=== PATIENT | male | born 1965 | race Caucasian/White ===

== ENCOUNTER 2016-09-20 10:53 | Outpatient (CLI) | payer OTHER ==
[2016-04-26 18:16] VITALS: BMI 29.7
[2016-09-20 13:17] LABS: BASOPHILS # (AUTO) 0.1 K/uL (0-0.2); BASOPHILS % (AUTO) 0.9 % (0.0-3.0); EOSINOPHILS # (AUTO) 0.5 K/ul (0.0-0.7); EOSINOPHILS % (AUTO) 7.8 % (0.0-7.0); HEMATOCRIT 46.1 % (42.0-52.0); HEMOGLOBIN 15.3 g/dl (14.0-18.0); IMMATURE GRANULOCYTE % (AUTO) 0.4 % (0.0-5.0); LYMPHOCYTES # (AUTO) 1.7 K/uL (0.60-3.4); MEAN CORPUSCULAR HEMOGLOBIN 30.1 pg (27.0-31.0); MEAN CORPUSCULAR HGB CONC 33.2 (31.8-35.4); MEAN CORPUSCULAR VOLUME 90.7 fl (80.0-94.0); MONOCYTES # (AUTO) 0.7 K/uL (0.4-2.0); MONOCYTES % (AUTO) 9.6 (0-10); NEUTROPHILS # (AUTO) 3.8 K/ul (2.0-6.9); NEUTROPHILS % (AUTO) 56.3; PLATELET COUNT 308 10^3/uL (140-440); RED BLOOD COUNT 5.08 10^6/ul (4.70-6.10)
[2016-09-20 13:35] LABS: ALBUMIN 3.9 g/dL (3.4-5.0); ALBUMIN/GLOBULIN RATIO 0.98; ANION GAP 12.6; BILIRUBIN,TOTAL 0.72 mg/dL (0.00-1.20); BUN/CREATININE RATIO 17.14; CALCIUM 9.3 mg/dL (8.2-10.2); CHOL/HDL RATIO 4.9 (4.5-6.4); CREATININE 1.05 mg/dL (0.60-1.10); PHOSPHORUS 2.7 mg/dL (2.5-4.9); POTASSIUM 4.6 mmol/L (3.5-5.1); TOTAL PROTEIN 7.9 g/dL (6.4-8.2)
[2016-09-20 13:36] LABS: BILIRUBIN,URINE Negative (NEGATIVE); KETONES,URINE Negative (NEGATIVE); LEUKOCYTE ESTERASE ,URINE Negative (NEGATIVE); NITRITE,URINE Negative (NEGATIVE); PROTEIN,URINE Negative (NEGATIVE); URINE, BLOOD Negative (NEGATIVE)
[2016-09-20 13:39] LABS: ADD URINE MICROSCOPIC NO
== END 2016-09-20 10:54 | disposition home or self-care (01) ==
LOC: LAB 10:53
PROVIDERS: ATTEND General Practice
DX: M54.5 Low back pain (principal); R73.09 Other abnormal glucose; M25.551 Pain in right hip; Z79.899 Other long term (current) drug therapy
CPT/HCPCS: 36415; 80053; 80061; 81001; 83036; 84100; 85025

== ENCOUNTER 2016-11-18 12:45 | Outpatient (CLI) ==
[2016-04-26 18:16] VITALS: BMI 29.7
== END 2016-11-18 12:46 | disposition home or self-care (01) ==
LOC: LAB 12:45
PROVIDERS: ATTEND General Practice
DX: M79.671 Pain in right foot (principal); M10.9 Gout, unspecified
CPT/HCPCS: 36415; 84550

== ENCOUNTER 2017-05-02 07:36 | Emergency (ER) ==
[2017-05-02 07:40] VITALS: BP 122/88; TEMP 97.4; BMI 30.3
[2017-05-02] MEDS ORDERED: MORPHINE 10 MG/ML SYRINGE IM STA (07:45)
[2017-05-02] MEDS ORDERED: NORCO 10-325 PO STA (07:45)
[2017-05-02] MEDS ORDERED: ZOFRAN 4 MG/2 ML IM STA (07:45)
[2017-05-02] MEDS ORDERED: TORADOL IM STA (07:46)
--- NOTE | 2017-05-02 07:50 | ED.PDOC ---
General ED Provider: Dr. SARI MICHAEL Chief Complaint: Foot Pain/Injury Stated Complaint: RIGHT FOOT PAIN Time Seen by Physician: 07:40 (GOUT HX WITH SAME PAIN) Mode of Arrival: Wheelchair Information Source: Patient, Family Exam Limitations: No limitations [facility] Nursing and Triage Documentation Reviewed and Agree: Yes Musculoskeletal Complaint Exam - Ankle/Foot Complaint/Exam Location of Injury: Reports: Right, Ankle, Foot Mechanism of Injury: Reports: No known trauma Onset/Duration: CHRONIC WORSE TODAY Symptoms Are: Reports: Still present Onset of Pain: Reports: Days Initial Severity: Moderate Current Severity: Moderate Location: Reports: Discrete Character: Reports: Aching Alleviating: Reports: Rest, Position Aggravating: Reports: Movement, Weight bearing, Prolonged standing Able to Bear Weight: Yes Associated Signs and Symptoms: Reports: Swelling (BIG TOE ). Denies: Redness, Bruising, Fever, Weakness, Numbness, Tingling Related History: Reports: Similar episode Gout Risk Factors: Reports: >40 years old, Male, HTN Related Surgical History: Reports: None Lower Extremity Findings: Present: Swelling (BIG TOE ALSO TENDER ) Tenderness: Present: Digits (BIG TOE) Differential Diagnosis: Gout Review of Systems - Review Of Systems Constitutional: Reports: No symptoms Eyes: Reports: No symptoms Ears, Nose, Mouth, Throat: Reports: No symptoms Respiratory: Reports: No symptoms Cardiac: Reports: No symptoms GI: Reports: No symptoms : Reports: No symptoms Musculoskeletal: Reports: Joint pain (BIG TOE) Skin: Reports: No symptoms Neurological: Reports: No symptoms Endocrine: Reports: No symptoms Hematologic/Lymphatic: Reports: No symptoms All Other Systems: Reviewed and Negative Past Medical History - Past Medical History Previously Healthy: Yes Endocrine: Reports: None Cardiovascular: Reports: None Respiratory: Reports: None Hematological: Reports: None Gastrointestinal: Reports: None Genitourinary: Reports: None Neuro/Psych: Reports: None Musculoskeletal: Reports: Arthritis Cancer: Reports: None - Surgical History General Surgical History: Reports: Orthopedic (BACK X 6, HIP REPLACEMENT), Back Surgery - Family History Family History: Reports: Unknown - Social History Smoking Status: Former smoker Hx Substance Use: No Alcohol Screening: Occasionally Physical Exam - Physical Exam Appearance: Well-appearing, No pain distress, Well-nourished Eyes: DREW, EOMI, Conjunctiva clear ENT: Ears normal, Nose normal, Oropharynx normal Respiratory: Airway patent, Breath sounds clear, Breath sounds equal, Respirations nonlabored Cardiovascular: RRR, Pulses normal, No rub, No murmur GI/: Soft, Nontender, No masses, Bowel sounds normal, No Organomegaly Musculoskeletal: Limited ROM (RIGHT BIG TOE) Skin: Warm, Dry, Normal color Neurological: Sensation intact, Motor intact, Reflexes intact, Cranial nerves intact, Alert, Oriented Psychiatric: Affect appropriate, Mood appropriate Critical Care Note - Critical Care Note Total Time (mins): 0 Course - Course Orders, Labs, Meds: Orders Category Date Time Status Ketorolac Tromethamine [Toradol] MEDS 05/02/17 07:46 Stat 60 mg IM ONCE STA Morphine Sulfate [Morphine 10 mg/ml Syringe] MEDS 05/02/17 07:45 Stat 4 mg IM ONCE STA Ondansetron HCl/Pf [Zofran 4 mg/2 ml] MEDS 05/02/17 07:45 Stat 4 mg IM ONCE STA Medications Discontinued Medications Generic Name Dose Route Start Last Admin Trade Name Michael PRN Reason Stop Dose Admin Ketorolac Tromethamine 60 mg 05/02/17 07:46 Toradol IM 05/02/17 07:47 ONCE STA Morphine Sulfate 4 mg 05/02/17 07:45 Morphine 10 Mg/Ml Syringe IM 05/02/17 07:46 ONCE STA Ondansetron HCl 4 mg 05/02/17 07:45 Zofran 4 Mg/2 Ml IM 05/02/17 07:46 ONCE STA Vital Signs: Temp Pulse Resp BP Pulse Ox 05/02/17 07:38 97.4 F L 94 H 20 122/88 94 L Departure - Departure Time of Disposition: 07:50 Disposition: HOME SELF-CARE Discharge Problem: Gout attack Qualifiers: Gout site: foot Gout etiology: unspecified cause Laterality: right Qualified Code(s): M10.9 - Gout, unspecified Instructions: Low Purine Diet (ED), Gout (ED) Condition: Good Pt referred to PMD for follow-up: Yes Additional Instructions: Please call your Family Physician as soon as possible to schedule a follow-up appointment. Prescriptions: Hydrocodone/Acetaminophen [Sharps 10-325 Tablet] 1 each PO Q8HR #14 tablet Indomethacin [Indocin] 50 mg PO TIDWM 4 Days #12 capsule Allergies/Adverse Reactions: Allergies No Known Drug Allergies Allergy (Verified 12/11/17 07:40) Home Medications: Ambulatory Orders Hydrocodone/Acetaminophen [Sharps 10-325 Tablet] 1 each PO Q8HR #14 tablet Indomethacin [Indocin] 50 mg PO TIDWM 4 Days #12 capsule 05/02/17
== END 2017-05-02 08:27 | disposition home or self-care (01) ==
LOC: ED 07:36
DX: M10.9 Gout, unspecified (principal)
CPT/HCPCS: 96372; 99283

== ENCOUNTER 2017-05-26 12:20 | Outpatient (CLI) ==
--- NOTE | 2017-05-26 12:55 | DI ---
EXAM: Three views of the right foot HISTORY: Pain in the right foot. COMPARISON: Right foot x-ray 12/03/2014 FINDINGS: There is degenerative change of the IP joint of the great toe on the first MTP joint with m inimal hallux valgus changes. There is a linear lucency seen to the ossicle near the first MTP joint seen best on lateral view. There is no visualized erosion. The arch is maintained. The soft tissue s are unremarkable. There is scattered degenerative change in the midfoot. IMPRESSION: 1. There is a linear lucency through the ossicle at the first MTP joint. This is new in comparison t o prior study. 2. There is scattered degenerative change throughout the right foot.
== END 2017-05-26 12:21 | disposition home or self-care (01) ==
LOC: RAD 12:20
PROVIDERS: ATTEND General Practice
DX: M79.671 Pain in right foot (principal)

== ENCOUNTER 2017-06-13 08:39 | Emergency (ER) ==
[2017-06-13 08:40] VITALS: BMI 30.3
[2017-06-13 08:43] VITALS: BP 114/70; TEMP 100.7
--- NOTE | 2017-06-13 10:02 | DI ---
EXAM: CHEST FRONTAL AND LATERAL VIEWS HISTORY: Cough. COMPARISON: 07/08/2013 FINDINGS: Heart size and mediastinal contour remain within normal limits. No acute infiltrates. Normal vascularity with no pleural fluid or pneumothorax. The bony thorax has no acute finding. IMPRESSION: No acute process.
--- NOTE | 2017-06-13 10:21 | ED.PDOC ---
General ED Provider: Dr. SARI MICHAEL Chief Complaint: Respiratory Complaint Stated Complaint: cough, flu like symptoms Time Seen by Physician: 09:00 Mode of Arrival: Walk-In Information Source: Patient Exam Limitations: No limitations [facility] and T[facility] Documentation Reviewed and Agree: Yes Reviewed sepsis parameters & appropriate labs ordered?: Yes System Inflammatory Response Syndrome: Not Applicable Sepsis Protocol: For patient's 13 years and over: Temp is 96.8 and below OR 101 and greater Pulse >90 BPM Resp >20/minute Acutely Altered Mental Status Are patient's symptoms suggestive of a new infection, such as: -Pneumonia -Skin, Soft Tissue -Endocarditis -UTI -Bone, Joint Infection -Implantable Device -Acute Abdominal Infection -Wound Infection -Meningitis -Blood Stream Catheter Infection -Unknown System Inflammatory Response Syndrome: Not Applicable Respiratory Complaint Exam - Respiratory Complaint/Exam Onset/Duration: 1 week Timing: Constant, Intermittent Initial Severity: Moderate Current Severity: Moderate Location: Throat, Chest Character: Reports: Non-productive cough Aggravating: Reports: None Alleviating: Reports: None Associated Signs and Symptoms: Reports: Fever, Chills, URI, Nasal congestion Related History: Reports: Similar episode History of Healthcare-Acquired Pneumonia: No Related Surgical History: Reports: None Pulmonary Embolism Risk Factors: None Cardiac Risk Factors: Reports: None Pseudomonas Risk Factors: Reports: None Tuberculosis Risk Factors: Reports: None Status Asthmaticus Risk Factors: Reports: None Home Oxygen Use: No Recent Stress Test: No Recent Echo/LV Function: No Current Antibiotic Use: No Current Asthma Medication Use: No Respiratory Distress: None Inadequate Respiratory Effort: No Dysphagia Present: No Stridor Present: No JVD Present: No Accessory Muscle Use: No Retractions: Not Present Grunting Respirations: No Kussmaul Respirations: No Differential Diagnoses: Pneumonia, Bronchitis, Influenza Review of Systems - Review Of Systems Constitutional: Reports: Chills, Fever, Malaise, Weakness Eyes: Reports: No symptoms Ears, Nose, Mouth, Throat: Reports: No symptoms Respiratory: Reports: Cough Cardiac: Reports: No symptoms GI: Reports: No symptoms : Reports: No symptoms Musculoskeletal: Reports: No symptoms Skin: Reports: No symptoms Neurological: Reports: No symptoms Endocrine: Reports: No symptoms Hematologic/Lymphatic: Reports: No symptoms All Other Systems: Reviewed and Negative Past Medical History - Past Medical History Previously Healthy: Yes Endocrine: Reports: None Cardiovascular: Reports: None Respiratory: Reports: None Hematological: Reports: None Gastrointestinal: Reports: None Genitourinary: Reports: None Neuro/Psych: Reports: None Musculoskeletal: Reports: Arthritis Cancer: Reports: None - Surgical History General Surgical History: Reports: Orthopedic (BACK X 6, HIP REPLACEMENT), Back Surgery - Family History Family History: Reports: Unknown - Social History Smoking Status: Former smoker Hx Substance Use: No Alcohol Screening: Occasionally Physical Exam - Physical Exam Appearance: Well-appearing, No pain distress, Well-nourished Eyes: DREW, EOMI, Conjunctiva clear ENT: Ears normal, Nose normal, Oropharynx normal Respiratory: Rhonchi Cardiovascular: RRR, Pulses normal, No rub, No murmur GI/: Soft, Nontender, No masses, Bowel sounds normal, No Organomegaly Musculoskeletal: Normal strength, ROM intact, No edema, No calf tenderness Skin: Warm, Dry, Normal color Neurological: Sensation intact, Motor intact, Reflexes intact, Cranial nerves intact, Alert, Oriented Psychiatric: Affect appropriate, Mood appropriate Interpretation - Radiology Interpretation Radiology Interpretation By: Radiologist Radiology Results: No acute changes Critical Care Note - Critical Care Note Total Time (mins): 0 Course - Course Hematology/Chemistry: 06/13/17 09:35 06/13/17 09:35 Orders, Labs, Meds: Lab Review 06/13/17 06/13/17 06/13/17 09:35 09:35 09:35 WBC 5.92 RBC 4.58 L Hgb 14.3 Hct 41.4 L MCV 90.4 MCH 31.2 H MCHC 34.5 RDW Coeff of Erika 14.2 Plt Count 278 Immature Gran % (Auto) 0.2 Neut % (Auto) 65.0 Lymph % (Auto) 18.8 Rapides % (Auto) 12.0 H Eos % (Auto) 3.5 Baso % (Auto) 0.5 Immature Gran # (Auto) 0.0 Neut # 3.9 Lymph # 1.1 Rapides # 0.7 Eos # 0.2 Baso # 0.0 Sodium 138 Potassium 4.2 Chloride 109 H Carbon Dioxide 24 Anion Gap 9.2 BUN 13 Creatinine 1.09 Estimated GFR (MDRD) 71.00 BUN/Creatinine Ratio 11.92 Glucose 128 H Calcium 8.5 Total Bilirubin 0.4 AST 23 ALT 22 Alkaline Phosphatase 66 Total Protein 7.3 Albumin 3.3 L Globulin 4.0 Albumin/Globulin Ratio 0.83 Influenza A (Rapid) Positive by naat H Influenza B (Rapid) Negative by naat Orders Category Date Time Status CBC W/ AUTO DIFF Stat LAB 06/13/17 09:35 Completed COMPREHENSIVE METABOLIC PANEL Stat LAB 06/13/17 09:35 Completed FLU A/B MOLECULAR Stat LAB 06/13/17 09:35 Completed CHEST, 2 VIEWS PA & LAT Stat RADS 06/13/17 09:29 Completed Vital Signs: Temp Pulse Resp BP Pulse Ox 06/13/17 08:40 100.7 F H 106 H 22 114/70 92 L Departure - Departure Time of Disposition: 10:21 Disposition: HOME SELF-CARE Discharge Problem: Influenza A Condition: Good Pt referred to PMD for follow-up: Yes IPMP verified?: Yes Additional Instructions: Please call your Family Physician as soon as possible to schedule a follow-up appointment. Allergies/Adverse Reactions: Allergies No Known Drug Allergies Allergy (Verified 05/02/17 07:40) Disposition Discussed With: Patient, Family
== END 2017-06-13 10:28 | disposition home or self-care (01) ==
LOC: ED 08:39
DX: J09.X2 Influenza due to identified novel influenza A virus with other respiratory manifestations (principal)
CPT/HCPCS: 36415; 80053; 85025; 87502; 99283

== ENCOUNTER 2017-07-21 11:54 | Outpatient (CLI) | END 2017-07-21 11:55 | disposition home or self-care (01) | LOC: FCC-LAB 11:54 | PROVIDERS: ATTEND General Practice | DX: Z12.5 Encounter for screening for malignant neoplasm of prostate (principal); Z79.899 Other long term (current) drug therapy | CPT/HCPCS: 36415; 80053; 80061; 81001; 85025 ==

== ENCOUNTER 2017-11-08 09:50 | Outpatient (CLI) | END 2017-11-08 09:51 | disposition home or self-care (01) | LOC: FCC-LAB 09:50 | PROVIDERS: ATTEND General Practice | DX: M10.9 Gout, unspecified (principal); R73.09 Other abnormal glucose; Z79.899 Other long term (current) drug therapy | CPT/HCPCS: 36415; 80053; 80061; 81001; 83036; 85025 ==

== ENCOUNTER 2018-05-28 17:06 | Emergency (ER) | payer OTHER ==
[2018-05-28 17:08] VITALS: BP 123/75; TEMP 97; BMI 25.7
--- NOTE | 2018-05-28 19:30 | DI ---
EXAM: Right wrist three views, 05/28/2018 HISTORY: Pain and swelling COMPARISON: None. FINDINGS: Normal anatomic alignment is maintained. Tiny ossific fragment adjacent to the ulnar styl oid may be chronic. The osseous structures throughout the wrist appear intact. No acute fracture id entified. Minimal osteoarthritic degenerative change. No gross soft tissue abnormality IMPRESSION: No acute osseous abnormality.
--- NOTE | 2018-05-28 19:31 | ED.PDOC ---
General ED Provider: Dr. TBAITHA KUMAR-ER Chief Complaint: Hand Pain/Injury Stated Complaint: my knuckles are swollen and tender--hurts to move Time Seen by Physician: 19:29 Mode of Arrival: Walk-In Information Source: Patient Exam Limitations: No limitations [facility] Nursing and Triage Documentation Reviewed and Agree: Yes Does patient meet sepsis criteria?: No System Inflammatory Response Syndrome: Not Applicable Sepsis Protocol: For patient's 13 years and over: Temp is 96.8 and below OR 101 and greater Pulse >90 BPM Resp >20/minute Acutely Altered Mental Status Are patient's symptoms suggestive of a new infection, such as: -Pneumonia -Skin, Soft Tissue -Endocarditis -UTI -Bone, Joint Infection -Implantable Device -Acute Abdominal Infection -Wound Infection -Meningitis -Blood Stream Catheter Infection -Unknown Musculoskeletal Complaint Exam - Hand/Wrist Complaint/Exam Location of Pain: Reports: Right, Hand Mechanism of Injury: Reports: No known trauma Symptoms Are: Still present Onset of Pain: Reports: Immediate Initial Severity: Mild Current Severity: Moderate Location: Reports: Discrete Character: Reports: Dull, Aching, Throbbing, Stiffness Associated Signs and Symptoms: Reports: Swelling. Denies: Redness, Bruising, Fever, Weakness, Numbness, Tingling Hand/Wrist Findings: Present: Swelling Tenderness: Present: Metacarpal, Phalanx Compartment Syndrome Risk Factors: Present: Pain. Absent: Paralysis, Pallor, Pulselessness, Paresthesias Differential Diagnoses: Gout, Tenosynovitis Review of Systems - Review Of Systems Constitutional: Reports: No symptoms Eyes: Reports: No symptoms Ears, Nose, Mouth, Throat: Reports: No symptoms Respiratory: Reports: No symptoms Cardiac: Reports: No symptoms GI: Reports: No symptoms : Reports: No symptoms Musculoskeletal: Reports: Joint pain, Joint swelling Skin: Reports: No symptoms Neurological: Reports: No symptoms Endocrine: Reports: No symptoms Hematologic/Lymphatic: Reports: No symptoms All Other Systems: Reviewed and Negative Past Medical History - Past Medical History Previously Healthy: Yes Endocrine: Reports: None Cardiovascular: Reports: None Respiratory: Reports: None Hematological: Reports: None Gastrointestinal: Reports: None Genitourinary: Reports: None Neuro/Psych: Reports: None Musculoskeletal: Reports: Arthritis Cancer: Reports: None - Surgical History General Surgical History: Reports: Orthopedic (BACK X 6, HIP REPLACEMENT), Back Surgery - Family History Family History: Reports: Unknown - Social History Smoking Status: Former smoker Hx Substance Use: No Alcohol Screening: Occasionally - Immunizations Tetanus Shot up to Date: No Physical Exam - Physical Exam Appearance: Well-appearing, No pain distress, Well-nourished Pain Distress: Moderate Eyes: DREW, EOMI, Conjunctiva clear ENT: Ears normal, Nose normal, Oropharynx normal Neck: Supple Respiratory: Airway patent Cardiovascular: RRR, Pulses normal, No rub, No murmur GI/: Soft, Nontender, No masses, Bowel sounds normal, No Organomegaly Musculoskeletal: Limited ROM Skin: Warm, Dry, Normal color Neurological: Sensation intact, Motor intact, Reflexes intact, Cranial nerves intact, Alert, Oriented Psychiatric: Affect appropriate, Mood appropriate Interpretation - Radiology Interpretation Radiology Interpretation By: Radiologist Radiology Results: Negative Physician Notification - Case Discussed Physician Notified: dr platt Time of Notification: 20:03 Critical Care Note - Critical Care Note Total Time (mins): 0 Course - Course Hematology/Chemistry: 05/28/18 19:10 05/28/18 19:10 Orders, Labs, Meds: Lab Review 05/28/18 05/28/18 19:10 19:10 WBC 5.93 RBC 4.38 L Hgb 13.2 L Hct 39.9 L MCV 91.1 MCH 30.1 MCHC 33.1 RDW Coeff of Erika 14.7 Plt Count 367 Immature Gran % (Auto) 0.2 Neut % (Auto) 46.2 Lymph % (Auto) 32.7 Gibson % (Auto) 10.8 H Eos % (Auto) 9.3 H Baso % (Auto) 0.8 Immature Gran # (Auto) 0.0 Neut # (Auto) 2.7 Lymph # (Auto) 1.9 Gibson # (Auto) 0.6 Eos # (Auto) 0.6 Baso # (Auto) 0.1 ESR 13 Sodium 139.0 Potassium 4.18 Chloride 108.2 H Carbon Dioxide 26.1 Anion Gap 8.88 BUN 18.1 Creatinine 0.81 Estimated GFR (MDRD) 100.00 BUN/Creatinine Ratio 22.34 Glucose 133.4 H Uric Acid 5.17 Calcium 8.68 Total Bilirubin 0.49 AST 22.9 ALT 18.8 Alkaline Phosphatase 70.8 Total Protein 7.38 Albumin 3.88 Globulin 3.50 Albumin/Globulin Ratio 1.10 Orders Category Date Time Status BLOOD CULTURE (ED ONLY) Stat LAB 05/28/18 19:10 Received CBC W/ AUTO DIFF Stat LAB 05/28/18 19:10 Completed COMPREHENSIVE METABOLIC PANEL Stat LAB 05/28/18 19:10 Completed ESR Stat LAB 05/28/18 19:10 Completed RHEUMATOID ARTHRITIS FACTOR Stat LAB 05/28/18 19:10 Received URIC ACID Stat LAB 05/28/18 19:10 Completed Dexamethasone 4 mg/ml Inj [Decadron 4 mg/ml Sdv] MEDS 05/28/18 19:59 Discontinued 8 mg IM ONCE STA Hydrocodone Bit/Acetaminophen [Zap 10-325] MEDS 05/28/18 20:03 Discontinued 1 tab PO ONCE STA HAND, RIGHT 3 VIEWS Stat RADS 05/28/18 18:56 Completed Medications Discontinued Medications Generic Name Dose Route Start Last Admin Trade Name Freq PRN Reason Stop Dose Admin Hydrocodone Bitart/Acetaminophen 1 tab 05/28/18 20:03 Zap 10-325 PO 05/28/18 20:04 ONCE STA Dexamethasone Sodium Phosphate 8 mg 05/28/18 19:59 05/28/18 20:03 Decadron 4 Mg/Ml Sdv IM 05/28/18 20:00 8 mg ONCE STA Administration Vital Signs: Temp Pulse Resp BP Pulse Ox 05/28/18 17:07 97.0 F L 75 18 123/75 96 Departure - Departure Time of Disposition: 20:03 Disposition: PLACED OBSERVATION Discharge Problem: Hand pain, right Instructions: Arthralgia (ED) Condition: Good Pt referred to PMD for follow-up: Yes IPMP verified?: No Additional Instructions: norco 10mg q 6hrs prn pain #10---f/u with dr platt on tuesday Allergies/Adverse Reactions: Allergies No Known Drug Allergies Allergy (Unverified 05/28/18 17:08) Disposition Discussed With: Patient
[2018-05-28] MEDS: DECADRON 4 MG/ML SDV IM STA (20:03)
[2018-05-28] MEDS: NORCO 10-325 PO STA (20:07)
== END 2018-05-28 20:10 | disposition home or self-care (01) ==
LOC: ED 17:06
DX: M79.641 Pain in right hand (principal)
CPT/HCPCS: 36415; 80053; 84550; 85025; 85651; 86430; 87040; 96372; 99283

== ENCOUNTER 2018-10-26 11:00 | Emergency (ER) | payer OTHER ==
[2018-10-26 11:09] VITALS: BP 134/78; TEMP 97.2; BMI 25.8
--- NOTE | 2018-10-26 12:02 | ED.PDOC ---
General ED Provider: Dr. TABITHA LANGE Chief Complaint: Laceration Stated Complaint: Cut Knee region from sharp metal.States metal paneling from a house was protruding out and he accidently walked into it an sustained a laceration to the RT knee.Approximatley 2 1/2 inches Time Seen by Physician: 11:30 Mode of Arrival: Walk-In Information Source: Patient Exam Limitations: No limitations [facility] and Triage Documentation Reviewed and Agree: Yes Does patient meet sepsis criteria?: No System Inflammatory Response Syndrome: Not Applicable Sepsis Protocol: For patient's 13 years and over: Temp is 96.8 and below OR 101 and greater Pulse >90 BPM Resp >20/minute Acutely Altered Mental Status Are patient's symptoms suggestive of a new infection, such as: -Pneumonia -Skin, Soft Tissue -Endocarditis -UTI -Bone, Joint Infection -Implantable Device -Acute Abdominal Infection -Wound Infection -Meningitis -Blood Stream Catheter Infection -Unknown Musculoskeletal Complaint Exam - Knee Pain Complaint/Exam Mechanism of Injury: Reports: Trauma Onset/Duration: earlier this morning Symptoms Are: Still present Onset of Pain: Reports: Immediate, Post accident Initial Severity: Moderate Current Severity: Moderate Location: Reports: Discrete Character: Reports: Sharp, Burning Alleviating: Reports: Rest Aggravating: Reports: Movement Associated Signs and Symptoms: Reports: Swelling (Bleeding) Able to Bear Weight: Yes Related History: Denies: Similar episode Septic Arthritis Risk Factors: Reports: None Gout Risk Factors: Reports: None Related Surgical History: Reports: Right Knee Knee Findings: Present: Swelling Tenderness: Present: Pre-patellar Limited Range of Motion: Absent: Active, Passive, Patellar apprehension Differential Diagnoses: Other (laceraton ) Review of Systems - Review Of Systems Constitutional: Reports: No symptoms Eyes: Reports: No symptoms Ears, Nose, Mouth, Throat: Reports: No symptoms Respiratory: Reports: No symptoms Cardiac: Reports: No symptoms GI: Reports: No symptoms : Reports: No symptoms Musculoskeletal: Reports: No symptoms Skin: Reports: No symptoms Neurological: Reports: No symptoms Endocrine: Reports: No symptoms Hematologic/Lymphatic: Reports: No symptoms All Other Systems: Reviewed and Negative Past Medical History - Past Medical History Previously Healthy: Yes Endocrine: Reports: None Cardiovascular: Reports: None Respiratory: Reports: None Hematological: Reports: None Gastrointestinal: Reports: None Genitourinary: Reports: None Neuro/Psych: Reports: None Musculoskeletal: Reports: Arthritis Cancer: Reports: None - Surgical History General Surgical History: Reports: Orthopedic (BACK X 6, HIP REPLACEMENT), Back Surgery - Family History Family History: Reports: Unknown - Social History Smoking Status: Current some day smoker Hx Substance Use: No Alcohol Screening: Occasionally - Immunizations Tetanus Shot up to Date: Yes Physical Exam - Physical Exam Appearance: Well-appearing, No pain distress, Well-nourished Ill-appearing: None Pain Distress: Moderate Eyes: DREW, EOMI, Conjunctiva clear Neck: Supple Respiratory: Airway patent, Breath sounds clear, Breath sounds equal, Respirations nonlabored Cardiovascular: RRR, Pulses normal, No rub, No murmur Musculoskeletal: Normal strength, ROM intact, No edema, No calf tenderness Skin: Warm, Dry, Normal color Neurological: Sensation intact, Motor intact, Reflexes intact, Cranial nerves intact, Alert, Oriented Psychiatric: Affect appropriate, Mood appropriate Interpretation - Radiology Interpretation Radiology Interpretation By: Radiologist Radiology Results: Negative Exam Interpreted: Other (knee/negative) Procedures - Laceration/Wound Repair Rt Knee Wound Description: Linear Wound Length (cm): 6 Cm Wound Width: 2-5 mm Wound Depth: superficial to moderate Wound Explored: Contaminated Wound Irrigated: Yes Wound Prep: Saline, Hibiclens, Betadine, Scrub Anesthesia: Lidocaine Wound Repaired With: Sutures Suture Size and Type: 3-0 Prolene Number of Sutures: 6 Layer Closure?: Yes (Vertical Mattress ) Sterile Dressing Applied?: Yes Critical Care Note - Critical Care Note Total Time (mins): 0 Course - Course Orders, Labs, Meds: Orders Category Date Time Status Lidocaine HCl/Pf [Lidocaine HCl 1% Sdv] MEDS 10/26/18 12:00 Discontinued 5 ml SUBCUT ONCE STA KNEE, RIGHT 1 OR 2 VIEWS Stat RADS 10/26/18 12:46 Completed Medications Discontinued Medications Generic Name Dose Route Start Last Admin Trade Name Freq PRN Reason Stop Dose Admin Lidocaine HCl 5 ml 10/26/18 12:00 10/26/18 12:43 Lidocaine Hcl 1% Sdv SUBCUT 10/26/18 12:01 5 ml ONCE STA Administration Vital Signs: Temp Pulse Resp BP Pulse Ox 10/26/18 11:01 97.2 F L 76 20 134/78 96 Departure - Departure Time of Disposition: 13:45 Disposition: HOME SELF-CARE Discharge Problem: Laceration of knee, right Instructions: Laceration (ED) Condition: Good Pt referred to PMD for follow-up: Yes IPMP verified?: No Additional Instructions: Follow wound care instructions Take Tylenol or advil for pain as needed See PCP in 1 week for evaluation and suture removal Take meds as directed Prescriptions: Cephalexin [Keflex] 500 mg PO BID #14 capsule Allergies/Adverse Reactions: Allergies No Known Drug Allergies Allergy (Unverified 10/26/18 11:30) Home Medications: Ambulatory Orders Cephalexin [Keflex] 500 mg PO BID #14 capsule 10/26/18 Disposition Discussed With: Patient
[2018-10-26] MEDS: LIDOCAINE HCL 1% SDV SUBCUT STA (12:43)
--- NOTE | 2018-10-26 13:41 | DI ---
EXAM: Two views of the right knee. History: Right knee pain and trauma. Findings: No acute fracture or dislocation. No abnormal calcifications or radiopaque foreign bodies . Joint spaces are preserved. Impression: No acute osseous abnormality
== END 2018-10-26 13:54 | disposition home or self-care (01) ==
LOC: ED 11:00
DX: S81.011A Laceration without foreign body, right knee, initial encounter (principal); W26.8XXA Contact with other sharp object(s), not elsewhere classified, initial encounter; F17.210 Nicotine dependence, cigarettes, uncomplicated
CPT/HCPCS: 99283